=== PATIENT | male | born 1995 | race Caucasian/White ===

== ENCOUNTER 2017-05-12 14:59 | Emergency (ER) | payer OTHER ==
--- NOTE | 2017-05-12 16:10 | RADIOLOGY REPORT (SQ) ---
EXAM DESCRIPTION: FOOT RIGHT COMPLETE COMPLETED DATE/TIME: 05/12/2017 3:33 pm REASON FOR STUDY: foot injury, pain COMPARISON: None. NUMBER OF VIEWS: Three views. TECHNIQUE: AP, lateral and oblique radiographic images acquired of the right foot. LIMITATIONS: None. FINDINGS: MINERALIZATION: Normal. BONES: Mildly displaced transverse fractures are seen of the 2nd, 3rd, and 4th metatarsal digit dista l metadiaphyses. JOINTS: No effusions. SOFT TISSUES: Mild soft tissue swelling involving the dorsal forefoot. No foreign body. OTHER: No other significant finding. IMPRESSION: Mildly displaced transverse fractures of the 2nd, 3rd, and 4th metatarsals. TECHNICAL DOCUMENTATION: JOB ID: [id number] [employer]- All Rights Reserved
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
[2017-05-12 16:55] VITALS: BP 138/66
== END 2017-05-12 16:56 | disposition home or self-care (01) ==
LOC: ER 14:59
PROC: 2W3QX1Z Immobilization of Right Lower Leg using Splint (ICD-10-PCS; principal; 2017-05-12)
DX: S92.321A Displaced fracture of second metatarsal bone, right foot, initial encounter for closed fracture (principal); S92.331A Displaced fracture of third metatarsal bone, right foot, initial encounter for closed fracture; S92.341A Displaced fracture of fourth metatarsal bone, right foot, initial encounter for closed fracture; V28.0XXA Motorcycle driver injured in noncollision transport accident in nontraffic accident, initial encounter
CPT/HCPCS: 99283

== ENCOUNTER 2017-10-01 18:31 | Emergency (ER) | payer OTHER ==
--- NOTE | 2017-10-01 20:19 | ER Document Report ---
ED General - General Chief Complaint: Elbow Injury Stated Complaint: ARM PAIN Time Seen by Provider: 10/01/17 20:17 Mode of Arrival: Ambulatory Information source: Patient Notes: 21 yr old male presents with complaints of left elbow pain with rom. Pt dneies any fevers or chills, admits to limited rom secondary to pain TRAVEL OUTSIDE OF THE [place] IN LAST 30 DAYS: No - HPI Onset: Other Onset/Duration: Persistent Quality of pain: Achy Severity: Mild Pain Level: 1 Associated symptoms: Body/muscle aches Exacerbated by: Movement Relieved by: Denies Similar symptoms previously: No Recently seen / treated by doctor: No - Related Data Allergies/Adverse Reactions: No Known Allergies Allergy (Verified 10/01/17 18:35) Past Medical History - Social History Smoking Status: Never Smoker Cigarette use (# per day): No Chew tobacco use (# tins/day): No Smoking Education Provided: No Family History: Reviewed & Not Pertinent Renal/ Medical History: Denies: Hx Peritoneal Dialysis Review of Systems - Review of Systems Notes: REVIEW OF SYSTEMS: CONSTITUTIONAL : Denies fever, chills, or sweats. Denies recent illness. EENT: Denies eye, ear, throat, or mouth pain or symptoms. Denies nasal or sinus congestion or discharge. Denies throat, tongue, or mouth swelling or difficulty swallowing. CARDIOVASCULAR: Denies chest pain. Denies palpitations or racing or irregular heart beat. Denies ankle edema. RESPIRATORY: Denies cough, cold, or chest congestion. Denies shortness of breath, difficulty breathing, or wheezing. GASTROINTESTINAL: Denies abdominal pain or distention. Denies nausea, vomiting , or diarrhea. Denies blood in vomitus, stools, or per rectum. Denies black, tarry stools. Denies constipation. GENITOURINARY: Denies difficulty urinating, painful urination, burning, frequency, blood in urine, or discharge. MUSCULOSKELETAL: left elbow pain SKIN: bruising HEMATOLOGIC : Denies easy bruising or bleeding. LYMPHATIC: Denies swollen, enlarged glands. NEUROLOGICAL: Denies confusion or altered mental status. Denies passing out or loss of consciousness. Denies dizziness or lightheadedness. Denies headache. Denies weakness or paralysis or loss of use of either side. Denies problems with gait or speech. Denies sensory loss, numbness, or tingling. Denies seizures. PSYCHIATRIC: Denies anxiety or stress. Denies depression, suicidal ideation, or homicidal ideation. ALL OTHER SYSTEMS REVIEWED AND NEGATIVE. Dictation was performed using [employer] voice recognition software PHYSICAL EXAMINATION: GENERAL: Well-appearing, well-nourished and in no acute distress. HEAD: Atraumatic, normocephalic. EYES: Pupils equal round and reactive to light, extraocular movements intact, sclera anicteric, conjunctiva are normal. ENT: Nares patent, oropharynx clear without exudates. Moist mucous membranes. NECK: Normal range of motion, supple without lymphadenopathy LUNGS: Breath sounds clear to auscultation bilaterally and equal. No wheezes rales or rhonchi. HEART: Regular rate and rhythm without murmurs ABDOMEN: Soft, nontender, nondistended abdomen. No guarding, no rebound. No masses appreciated. Musculoskeletal:pain at distal humerus wit hechymosis NEUROLOGICAL: Cranial nerves grossly intact. Normal speech, normal gait. Normal sensory, motor exams PSYCH: Normal mood, normal affect. SKIN: Warm, Dry, normal turgor, no rashes or lesions noted. Physical Exam - Vital signs Vitals: Temp Pulse Resp BP Pulse Ox 98.6 F 62 14 129/78 H 100 10/01/17 18:36 10/01/17 18:36 10/01/17 18:36 10/01/17 18:36 10/01/17 18:36 Course - Re-evaluation Re-evalutation: 10/01/17 20:19 xray pending, otherwise patient looks well in no distress 10/01/17 21:27 Hairline fracture is noted with joint effusion, patient refuses to be splinted states he needs to use his arm at work. I will give orthopedic follow-up and he understands risks and benefits of not having this completely worked up in taking care of After performing a Medical Screening Examination, I estimate there is LOW risk for INTRACRANIAL HEMORRHAGE, UNSTABLE SPINE FRACTURE, CENTRAL CORD SYNDROME, CAUDA EQUINA, THORACIC AORTIC DISSECTION, PNEUMOTHORAX, PERFORATED BOWEL, RUPTURED ABDOMINAL AORTIC ANEURYSM, ACUTE TENDON RUPTURE, COMPARTMENT SYNDROME, or OPEN FRACTURE, thus I consider the discharge disposition reasonable. Also, there is no evidence or peritonitis, sepsis, or toxicity. I have reevaluated this patient multiple times and no significant life threatening changes are noted. The patient and I have discussed the diagnosis and risks, and we agree with discharging home to follow-up with their primary doctor with the understanding that symptoms and presentations can change. We also discussed returning to the Emergency Department immediately if new or worsening symptoms occur. We have discussed the symptoms which are most concerning (e.g., bloody stool, fever, changing or worsening pain, vomiting) that necessitate immediate return. - Vital Signs Vital signs: Temp Pulse Resp BP Pulse Ox 98.6 F 62 14 129/78 H 100 10/01/17 18:36 10/01/17 18:36 10/01/17 18:36 10/01/17 18:36 10/01/17 18:36 - Diagnostic Test Radiology reviewed: Image reviewed, Reports reviewed Discharge - Discharge Clinical Impression: Elbow fracture, left Qualifiers: Encounter type: initial encounter Fracture type: closed Qualified Code(s): S42.402A - Unspecified fracture of lower end of left humerus, initial encounter for closed fracture Condition: Stable Disposition: HOME, SELF-CARE Instructions: Elbow Effusion ([facility]) Referrals: BIRDIE BUSBY MD [ACTIVE STAFF] - Follow up as needed
--- NOTE | 2017-10-01 21:15 | RADIOLOGY REPORT (SQ) ---
EXAM DESCRIPTION: ELBOW LEFT OVER 2 VIEWS COMPLETED DATE/TIME: 10/01/2017 8:26 pm REASON FOR STUDY: fall COMPARISON: None. NUMBER OF VIEWS: Four views. TECHNIQUE: AP, lateral, and both oblique radiographic images acquired of the left elbow. LIMITATIONS: None. FINDINGS: MINERALIZATION: Normal. BONES: Hairline acute nondisplaced fracture, coronoid process of the ulna marked on the oblique view with an arrow. JOINT: Small elbow joint effusion with elevation of the ventral and dorsal fat pads. SOFT TISSUES: No soft tissue swelling. No foreign body. OTHER: No other significant finding. IMPRESSION: Hairline nondisplaced acute fracture through the coronoid process of the ulna. Associat ed left elbow joint effusion. TECHNICAL DOCUMENTATION: JOB ID: [id number] [employer]- All Rights Reserved
[2017-10-01 21:43] VITALS: BP 118/72
== END 2017-10-01 21:30 | disposition home or self-care (01) ==
LOC: ER 18:31
DX: S42.402A Unspecified fracture of lower end of left humerus, initial encounter for closed fracture (principal); M79.602 Pain in left arm; X58.XXXA Exposure to other specified factors, initial encounter
CPT/HCPCS: 99283